=== PATIENT | male | born 1955 | race Caucasian/White ===

== ENCOUNTER 2018-08-02 11:53 | Emergency (ER) | payer BC ==
[2018-08-02] MEDS ORDERED: Sodium Chloride 0.9% 10 ML Syringe FLUSH PRN (12:26)
--- NOTE | 2018-08-02 12:27 | EDM.PDOC ---
<Hazel Doss - Last Filed: 08/02/18 12:34> ED HPI GENERAL MEDICAL PROBLEM - General Chief Complaint: Abdominal Pain Stated Complaint: ABDOMINAL PAIN Time Seen by Provider: 08/02/18 12:00 Source of Information: Reports: Patient History Limitations: Reports: No Limitations - History of Present Illness INITIAL COMMENTS - FREE TEXT/NARRATIVE: Luis is a 63-eyar-old man with medical history significant for sleep apnea, HTN and umbilical hernia who complains of 10/10 periumbilical pain with acute onset 30 minutes prior to arrival. He reports he was at work when he took a break to get something to eat. He was walking to the fridge when the pain occurred. Symptoms have never occurred previously. He has had an umbilical hernia for "a long time," but he has never had any complications. Pain is sharp and is located at/around the umbilicus. It is better with rest and exacerbated by sitting up (use of abdominal muscles) and use of his belt. The pain is constant and does not wax/wane. Luis denies fever, nausea/vomiting , diarrhea/constipation, hematemesis or hematochezia, previous abdominal surgeries, and gastrointestinal problems. He has never had a colonoscopy. He last a normal bowel movement at 11am today. Onset: Today, Sudden Quality: Reports: Sharp Severity: Severe - Related Data Allergies Allergy/AdvReac Type Severity Reaction Status Date / Time No Known Allergies Allergy Verified 08/02/18 12:05 ED ROS GENERAL - Review of Systems Constitutional: Reports: Chills. Denies: Fever, Diaphoresis, Decreased Appetite Respiratory: Denies: Shortness of Breath Cardiovascular: Denies: Chest Pain, Palpitations GI/Abdominal: Reports: Abdominal Pain (periumbilical, as per HPI). Denies: Black Stool, Bloody Stool, Diarrhea, Hematemesis, Hematochezia, Melena, Nausea, Vomiting : Reports: No Symptoms Musculoskeletal: Reports: No Symptoms Skin: Reports: No Symptoms Neurological: Reports: No Symptoms ED EXAM, GI/ABD - Physical Exam Text/Narrative:: Pt appears uncomfortable, with flushed, clammy skin Exam Limited By: No Limitations General Appearance: Alert, Moderate Distress Respiratory/Chest: Lungs Clear, Normal Breath Sounds Cardiovascular: Normal Peripheral Pulses, Regular Rate, Rhythm, No Murmur GI/Abdominal Exam: Normal Bowel Sounds (bowel sounds normal in all 4 quadrants) , Rigid (umbilicus is rigid; remainder of abdomen is soft), Tender ( periumbilical tenderness to light palpation. Remainder of abdomen is non-tender to deep palpation), Other (obese abdomen with umbilical hernia. No diastasis recti.) Neurological: Alert, Oriented Psychiatric: Anxious Skin Exam: Warm (skin is warm and clammy) Course - Vital Signs Last Recorded V/S: Last Vital Signs Temp 97.6 F 08/02/18 12:02 Pulse 77 08/02/18 12:02 Resp 18 08/02/18 12:02 BP 140/86 08/02/18 12:02 Pulse Ox 98 08/02/18 12:02 - Orders/Labs/Meds Labs: Laboratory Tests 08/02/18 08/02/18 Range/Units 12:30 12:30 WBC 7.28 (4.23-9.07) K/mm3 RBC 5.51 (4.63-6.08) M/mm3 Hgb 16.7 (13.7-17.5) gm/L Hct 47.5 (40.1-51.0) % MCV 86.2 (79.0-92.2) fl MCH 30.3 (25.7-32.2) pg MCHC 35.2 (32.2-35.5) g/dl RDW Std Deviation 41.9 (35.1-43.9) fL Plt Count 229 (163-337) K/mm3 MPV 9.5 (9.4-12.3) fl Neutrophils % (Manual) 52 (40-60) % Band Neutrophils % 0 (0-10) % Lymphocytes % (Manual) 33 (20-40) % Atypical Lymphs % 0 % Monocytes % (Manual) 7 (2-10) % Eosinophils % (Manual) 6 (0.8-7.0) % Basophils % (Manual) 2 H (0.2-1.2) Platelet Estimate Adequate Plt Morphology Comment Normal RBC Morph Comment Normal Sodium 138 (136-145) mEq/L Potassium 3.7 (3.5-5.1) mEq/L Chloride 102 (98-107) mEq/L Carbon Dioxide 26 (21-32) mEq/L Anion Gap 13.7 (5-15) BUN 15 (7-18) mg/dL Creatinine 1.2 (0.7-1.3) mg/dL Est Cr Clr Drug Dosing 56.86 mL/min Estimated GFR (MDRD) > 60 (>60) mL/min BUN/Creatinine Ratio 12.5 L (14-18) Glucose 104 (80-115) mg/dL Calcium 8.5 (8.5-10.1) mg/dL Total Bilirubin 0.7 (0.2-1.0) mg/dL AST 22 (15-37) U/L ALT 21 (16-63) U/L Alkaline Phosphatase 65 (46-116) U/L C-Reactive Protein < 0.2 (<1.0) mg/dL Total Protein 7.1 (6.4-8.2) g/dl Albumin 3.9 (3.4-5.0) g/dl Globulin 3.2 gm/dL Albumin/Globulin Ratio 1.2 (1-2) Meds: Medications Discontinued Medications Generic Name Dose Route Start Last Admin Trade Name Freq PRN Reason Stop Dose Admin Hydromorphone HCl 1 mg 08/02/18 12:33 08/02/18 12:49 Dilaudid IVPUSH 08/02/18 12:34 1 mg ONETIME ONE Administration Hydromorphone HCl 0.5 mg 08/02/18 12:56 08/02/18 13:01 Dilaudid IVPUSH 08/02/18 12:57 0.5 mg ONETIME ONE Administration Hydromorphone HCl 0.5 mg 08/02/18 13:11 08/02/18 13:27 Dilaudid IVPUSH 08/02/18 13:12 0.5 mg ONETIME ONE Administration Sodium Chloride 1,000 mls @ 150 mls/hr 08/02/18 12:45 08/02/18 12:50 Normal Saline IV 150 mls/hr ASDIRECTED ROSA Administration Midazolam HCl 2 mg 08/02/18 12:34 08/02/18 12:47 Versed 1 Mg/Ml IVPUSH 08/02/18 12:35 2 mg ONETIME ONE Administration Midazolam HCl 2 mg 08/02/18 13:11 08/02/18 13:28 Versed 1 Mg/Ml IVPUSH 08/02/18 13:12 2 mg ONETIME ONE Administration Sodium Chloride 10 ml 08/02/18 12:26 08/02/18 12:41 Saline Flush FLUSH 10 ml ASDIRECTED PRN Administration Keep Vein Open Departure - Departure Disposition: Home, Self-Care 01 Clinical Impression: Periumbilical hernia - Discharge Information Instructions: Umbilical Hernia, Adult Referrals: Sera Vasquez PA-C [Primary Care Provider] - Forms: ED Department Discharge, ED Return to Work/School Form Additional Instructions: wear vic wrap with gauze pressure when up, walking or working. No lifting more than 10 lbs recomended until you get this repaired. Daily stool softner recomended. See Dr Mirza, [facility] next Aug.08 3:45 PM. Return to ED as needed. <Narendra Salazar - Last Filed: 08/05/18 12:13> ED HPI GENERAL MEDICAL PROBLEM Abdomen Pain Score (Numeric/FACES): 10 Past Medical History Cardiovascular History: Reports: Hypertension Social & Family History - Tobacco Use Smoking Status *Q: Never Smoker - Caffeine Use Caffeine Use: Reports: Soda - Recreational Drug Use Recreational Drug Use: No ED ROS GENERAL - Review of Systems Review Of Systems: See Below HEENT: Reports: No Symptoms Musculoskeletal: Denies: Back Pain ED EXAM, GI/ABD - Physical Exam Exam: See Below Throat/Mouth: Normal Inspection Head: Atraumatic Neck: Supple Back Exam: No: CVA Tenderness (L), CVA Tenderness (R) Extremities: Normal Inspection, No Pedal Edema Neurological: No Motor/Sensory Deficits Course - Orders/Labs/Meds Labs: Laboratory Tests 08/02/18 08/02/18 Range/Units 12:30 12:30 WBC 7.28 (4.23-9.07) K/mm3 RBC 5.51 (4.63-6.08) M/mm3 Hgb 16.7 (13.7-17.5) gm/L Hct 47.5 (40.1-51.0) % MCV 86.2 (79.0-92.2) fl MCH 30.3 (25.7-32.2) pg MCHC 35.2 (32.2-35.5) g/dl RDW Std Deviation 41.9 (35.1-43.9) fL Plt Count 229 (163-337) K/mm3 MPV 9.5 (9.4-12.3) fl Neutrophils % (Manual) 52 (40-60) % Band Neutrophils % 0 (0-10) % Lymphocytes % (Manual) 33 (20-40) % Atypical Lymphs % 0 % Monocytes % (Manual) 7 (2-10) % Eosinophils % (Manual) 6 (0.8-7.0) % Basophils % (Manual) 2 H (0.2-1.2) Platelet Estimate Adequate Plt Morphology Comment Normal RBC Morph Comment Normal Sodium 138 (136-145) mEq/L Potassium 3.7 (3.5-5.1) mEq/L Chloride 102 (98-107) mEq/L Carbon Dioxide 26 (21-32) mEq/L Anion Gap 13.7 (5-15) BUN 15 (7-18) mg/dL Creatinine 1.2 (0.7-1.3) mg/dL Est Cr Clr Drug Dosing 56.86 mL/min Estimated GFR (MDRD) > 60 (>60) mL/min BUN/Creatinine Ratio 12.5 L (14-18) Glucose 104 (80-115) mg/dL Calcium 8.5 (8.5-10.1) mg/dL Total Bilirubin 0.7 (0.2-1.0) mg/dL AST 22 (15-37) U/L ALT 21 (16-63) U/L Alkaline Phosphatase 65 (46-116) U/L C-Reactive Protein < 0.2 (<1.0) mg/dL Total Protein 7.1 (6.4-8.2) g/dl Albumin 3.9 (3.4-5.0) g/dl Globulin 3.2 gm/dL Albumin/Globulin Ratio 1.2 (1-2) Meds: Medications Discontinued Medications Generic Name Dose Route Start Last Admin Trade Name Freq PRN Reason Stop Dose Admin Hydromorphone HCl 1 mg 08/02/18 12:33 08/02/18 12:49 Dilaudid IVPUSH 08/02/18 12:34 1 mg ONETIME ONE Administration Hydromorphone HCl 0.5 mg 08/02/18 12:56 08/02/18 13:01 Dilaudid IVPUSH 08/02/18 12:57 0.5 mg ONETIME ONE Administration Hydromorphone HCl 0.5 mg 08/02/18 13:11 08/02/18 13:27 Dilaudid IVPUSH 08/02/18 13:12 0.5 mg ONETIME ONE Administration Sodium Chloride 1,000 mls @ 150 mls/hr 08/02/18 12:45 08/02/18 12:50 Normal Saline IV 150 mls/hr ASDIRECTED ROSA Administration Midazolam HCl 2 mg 08/02/18 12:34 08/02/18 12:47 Versed 1 Mg/Ml IVPUSH 08/02/18 12:35 2 mg ONETIME ONE Administration Midazolam HCl 2 mg 08/02/18 13:11 08/02/18 13:28 Versed 1 Mg/Ml IVPUSH 08/02/18 13:12 2 mg ONETIME ONE Administration Sodium Chloride 10 ml 08/02/18 12:26 08/02/18 12:41 Saline Flush FLUSH 10 ml ASDIRECTED PRN Administration Keep Vein Open - Re-Assessments/Exams Free Text/Narrative Re-Assessment/Exam: 08/05/18 12:11 Initial hx and exam was done by Hazel Jack, 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 I agree with her hx and exam as documneted. I also interviewed and examined patient. Patient was given IV dilaudid, multiple doses of IV versed for pain and for relaxation. Than with a few minutes of gentle pressure I was able to reduce the hernina Departure - Departure Time of Disposition: 15:27 Condition: Fair
[2018-08-02] MEDS ORDERED: HYDROmorphone 0.5 MG/0.5 ML SYRINGE IVPUSH ONE ×3 (12:33→13:11)
[2018-08-02] MEDS ORDERED: Midazolam 1 MG/ML 2 ML SDV IVPUSH ONE ×2 (12:34→13:11)
[2018-08-02] MEDS ORDERED: Sodium Chloride 0.9% 1,000 ML IV SCH (12:45)
== END 2018-08-02 15:54 | disposition home or self-care (01) ==
LOC: JD.ED 11:53
DX: K42.9 Umbilical hernia without obstruction or gangrene (principal); I10 Essential (primary) hypertension
CPT/HCPCS: 36415; 80053; 85007; 85027; 86140; 96361; 96374; 96375; 96376; 99284; J1170; J2250; J7040; J7050

== ENCOUNTER 2019-12-28 19:40 | Emergency (ER) | payer BC ==
--- NOTE | 2019-12-28 20:38 | EDM.PDOC ---
ED HPI GENERAL MEDICAL PROBLEM - General Chief Complaint: Neurological Problem Stated Complaint: FELL ON HEAD WHILE ICE FISHING BLACKED OUT Time Seen by Provider: 12/28/19 21:48 Source of Information: Reports: Patient, Family History Limitations: Reports: No Limitations (O's) - History of Present Illness INITIAL COMMENTS - FREE TEXT/NARRATIVE: 64-year-old male presents to the ED after slipping and falling on the ice while out ice fishing at about 1730 hrs. today. Apparently the fall was witnessed by a father and son who are fishing nearby. It is suggested that he probably lost consciousness for a minute or so. He states he did not the wind out of him. He laid on the ice for period of time to collect his thoughts and when he got up he seen that there was a little bit of blood on the ice. At present he is complaining of some diffuse cervical neck pain and has had previous cervical spine surgery with fusion. He does have a headache for which she has taken 2 Advil's. He has no nausea or vomiting. Onset: Today Onset Date: 12/28/19 Onset Time: 17:30 Duration: Hour(s):, Constant Location: Reports: Head (Has a goose egg on the back of his head with some mild bleeding.), Neck (Fuhs cervical neck pain) Quality: Reports: Ache Severity: Moderate (4 out of 10) Improves with: Reports: Medication (Advil x2 seems to have helped with the headache) Worsens with: Reports: Movement (Some pain with movement of his neck) Context: Reports: Trauma (10 fell on the ice while out ice fishing at [facility] here in [place].). Denies: Activity, Exercise, Lifting, Sick Contact Associated Symptoms: Reports: Headaches. 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 (He took 2 tablets of Motrin about 1830 hrs.) Headache Pain Score (Numeric/FACES): 4 - Related Data Allergies Allergy/AdvReac Type Severity Reaction Status Date / Time No Known Allergies Allergy Verified 12/28/19 20:10 Home Meds: Home Meds Aspirin [Low Dose Aspirin EC] 81 mg PO DAILY 08/12/18 [History] Enalapril Maleate 10 mg PO DAILY 08/12/18 [History] Furosemide 20 mg PO DAILY 08/12/18 [History] Potassium Chloride 20 meq PO DAILY 08/12/18 [History] Past Medical History HEENT History: Reports: Hard of Hearing, Impaired Vision, Other (See Below) Other HEENT History: has reading glasses, dentures Cardiovascular History: Reports: Hypertension Respiratory History: Reports: Sleep Apnea (cpap at night) Gastrointestinal History: Reports: Other (See Below) Other Gastrointestinal History: umbilical hernia Genitourinary History: Reports: BPH 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: Reports: None Musculoskeletal History: Reports: None Psychiatric History: Reports: None Endocrine/Metabolic History: Reports: None Hematologic History: Reports: None Immunologic History: Reports: None Oncologic (Cancer) History: Reports: None Dermatologic History: Reports: None - Past Surgical History Head Surgeries/Procedures: Reports: None HEENT Surgical History: Reports: Oral Surgery Cardiovascular Surgical History: Reports: None Respiratory Surgical History: Reports: None GI Surgical History: Reports: None Female Surgical History: Reports: None Male Surgical History: Reports: None Endocrine Surgical History: Reports: None Neurological Surgical History: Reports: Other (See Below) Other Neurological Surgeries/Procedures: neck surgery Musculoskeletal Surgical History: Reports: Other (See Below) Other Musculoskeletal Surgeries/Procedures:: carpal tunnel release bilaterally and finger Oncologic Surgical History: Reports: None Dermatological Surgical History: Reports: None Social & Family History - Caffeine Use Caffeine Use: Reports: Coffee, Soda - Living Situation & Occupation Living situation: Reports: Occupation: Employed [facility] [employer] GENERAL - Review of Systems Review Of Systems: See Below Constitutional: Denies: Fever, Chills, Malaise, Weakness, Fatigue, Decreased Appetite, Weight Loss HEENT: Reports: Glasses Respiratory: Reports: No Symptoms Cardiovascular: Reports: Blood Pressure Problem. Denies: Chest Pain Endocrine: Reports: No Symptoms GI/Abdominal: Reports: No Symptoms : Reports: Frequency, Other (Nocturia x2 or 3) Musculoskeletal: Reports: Neck Pain (Pain for which he has had previous fusion carried out at C5-C6 level.), Back Pain (Positive low back pain and knee pain) Skin: Reports: No Symptoms Neurological: Reports: Headache. Denies: Confusion, Dizziness, Numbness, Pre- Existing Deficit, Seizure, Syncope, Tingling (Mild to moderate headache.), Tremors, Trouble Speaking, Difficulty Walking, Weakness Psychiatric: Reports: No Symptoms Hematologic/Lymphatic: Reports: No Symptoms Immunologic: Reports: No Symptoms ED EXAM, NEURO - Physical Exam Exam: See Below Exam Limited By: No Limitations General Appearance: Alert, WD/WN, No Apparent Distress, Other (Vital signs show temperature 37.6 but he does not feel warm to palpation. Heart rate was 98 in sinus respiratory of 18 with O2 sats of 99% on room air blood pressure mildly elevated at 147/94.) Eye Exam: Bilateral Eye: Normal Inspection Ears: Normal TMs Nose: Normal Inspection Throat/Mouth: Normal Inspection, Normal Lips, Normal Oropharynx, Other Head Exam: Other (No dental or tongue injury she has a 5 cm hematoma right in the middle of his occipital scalp that is tender to touch. There is a superficial abrasion measuring 6 mm to the left side of this hematoma. It is not actively bleeding at this time) Neck: Full Range of Motion (Hepatus and some pain at full range of motion particularly lateral rotation and lateral flexion.), Tender Lateral, Other ( Midline cervical scar from previous fusion. Also scar anterior neck.). No: Lymphadenopathy (L) (Laterally mild.), Lymphadenopathy (R) Respiratory/Chest: No Respiratory Distress, Lungs Clear, Normal Breath Sounds, No Accessory Muscle Use, Chest Non-Tender Cardiovascular: Normal Peripheral Pulses (From compression of his ribs did not cause any pain.), Regular Rate, Rhythm, No Edema, No Gallop, No Murmur, No Rub GI/Abdominal: Normal Bowel Sounds, Soft, Non-Tender, No Organomegaly, No Abnormal Bruit, No Mass, Pelvis Stable, Other Neurological: Alert, Normal Mood/Affect, Normal Dorsiflexion, CN II-XII Intact, Normal Plantar Flexion, Normal Gait, No Motor/Sensory Deficits, Oriented x 3 DTR: 1+: Achilles (R), Achilles (L), 2+: Bicep (R), Bicep (L), Patella (R), Patella (L) Back Exam: Normal Inspection, Full Range of Motion, Vertebral Tenderness, Other. No: CVA Tenderness (L), CVA Tenderness (R) Extremities: Normal Inspection (Fusions or abrasions to the upper or lower back) , Normal Range of Motion, Non-Tender, Other Psychiatric: Normal Affect, Normal Mood (Degrees to his elbows wrists or forearms.) Skin Exam: Warm, Dry, Intact, Normal Color, No Rash Course - Vital Signs Last Recorded V/S: Last Vital Signs Temp 37.6 C 12/28/19 20:06 Pulse 98 12/28/19 20:06 Resp 18 12/28/19 20:06 BP 147/94 H 12/28/19 20:06 Pulse Ox 99 12/28/19 20:06 - Orders/Labs/Meds Orders: Active Orders 24 hr Category Date Time Status Cervical Spine wo Cont [CT] Stat Exams 12/28/19 20:37 Taken Head wo Cont [CT] Stat Exams 12/28/19 20:35 Taken - Radiology Interpretation Free Text/Narrative:: 64-year-old male presents to the ED for slipping and falling on the ice while ice fishing at about 1730 hrs. today. A son and father who were nearby fishing appreciated him falling or witnessed it and they indicate that he was unresponsive for about a minute or so. Patient states that he did not the wind out of him and it took a while for him to get his bearings. He laid flat on the ice for a period of time. When he got up he noted a spot of blood on the eyes. After a while he [place] up his things and went on home. He continued to have a worsening headache and therefore presents to the ED for evaluation. Patient has some diffuse cervical neck pain as well. 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 Take 2 tablets for relief of headache since he fell. He has not appreciated any further bleeding from his scalp. And CT head and cervical spine to be done. He has no other obvious injuries. - Re-Assessments/Exams Free Text/Narrative Re-Assessment/Exam: 12/28/19 22:00: CT of the head reveals small bilateral basal ganglia calcifications. No acute intracranial hemorrhage is appreciated. The ibarra- white matter differentiation is normal. There is no ventriculomegaly no acute fractures identified. Mild right maxillary sinus mucosal thickening. No mastoid effusion. CT of the cervical spine reveals beam hardening artifact limits evaluation at the C5-T3 level. There is C4-C5 anterior discectomy and instrumented fusion. Mild smooth reversal of the normal cervical lordosis. No acute fractures are identified. There is moderate to severe left C6-on C7 neuroforaminal stenosis. And advised of the findings. He is likely to have a much more stiffer and sore neck tomorrow. He may well have suffered a mild concussion but he prefers to try and go to work tomorrow. He can continue Motrin 60 mg every 6 hours as needed for headache relief. He will return if he develops nausea vomiting or worsening headache. Departure - Departure Time of Disposition: 22:02 Disposition: Home, Self-Care 01 Condition: Fair Clinical Impression: Closed head injury with concussion Qualifiers: Encounter type: initial encounter Loss of consciousness presence/duration: with LOC of 30 min or less Qualified Code(s): S06.0X1A - Concussion with loss of consciousness of 30 minutes or less, initial encounter - Discharge Information *PRESCRIPTION DRUG MONITORING PROGRAM REVIEWED*: Not Applicable *COPY OF PRESCRIPTION DRUG MONITORING REPORT IN PATIENT TERRIE: Not Applicable Instructions: Concussion, Adult, Head Injury, Adult, [id number] Referrals: Sera Vasquez PA-C [Primary Care Provider] - Forms: ED Department Discharge Additional Instructions: Evaluation in the emergency room today in regards to slip and fall on the ice while out ice fishing earlier this evening. History suggest transient loss of consciousness due to the fall and therefore I suspect a very mild concussion. Concussion is a bruised brain and usually means taking life fairly easy for the next 3 or 4 days in terms of not doing any activities that get your blood pressure elevated etc. CT of the head reveals no skull fractures and no intracranial bleeding or mass-effect. CT of your cervical spine reveals no fractures and that your hardware placed in the past is with him its appropriate position. Expect her neck to become much more stiff and sore over the next couple of days. It is okay to take Motrin 600 mg every 6 hours as needed for headache and/or neck pain relief. Follow-up with personal care physician if any further problems occur. Sepsis Event Note - Evaluation Sepsis Screening Result: No Definite Risk - Focused Exam Vital Signs: Vital Signs Temp Pulse Resp BP Pulse Ox 12/28/19 20:06 37.6 C 98 18 147/94 H 99 Date Exam was Performed: 12/29/19 Time Exam was Performed: 00:47 - My Orders Last 24 Hours: My Active Orders 12/28/19 20:35 Head wo Cont [CT] Stat 12/28/19 20:37 Cervical Spine wo Cont [CT] Stat - Assessment/Plan Last 24 Hours: My Active Orders 12/28/19 20:35 Head wo Cont [CT] Stat 12/28/19 20:37 Cervical Spine wo Cont [CT] Stat
--- NOTE | 2019-12-29 06:55 | CT ---
Head CT Technique: Multiple axial sections through the brain were obtained. Intravenous contrast was not utilized. Comparison: No prior intracranial imaging is available. Findings: Ventricles along with basal cisterns and sulci over the convexities appear within normal limits for the patient's age. Slight basal ganglia calcifications seen which is not expected in a patient this age. No abnormal parenchymal densities are seen. No evidence of intracranial hemorrhage. No midline shift or mass-effect is seen. Bone window settings were reviewed. Visualized mastoid sinuses show nothing acute. Minimal fluid is seen within the right maxillary sinus. No acute calvarial abnormality is appreciated. Impression: 1. Small air-fluid level within the right maxillary sinus most likely representing retained secretions. 2. No acute intracranial abnormality is appreciated. Diagnostic code #2 This report was dictated in [place] Standard Time I agree with preliminary report from [facility], finalized on 12/28/19, 10:35 PM Central Time
--- NOTE | 2019-12-29 06:55 | CT ---
CT cervical spine Technique: Multiple axial sections were obtained from above C1 inferiorly to the mid T3 level. Reconstructed sagittal and coronal images were reviewed. Comparison: No prior cervical spine imaging is available. Findings: Mild degenerative change is noted between the dens and anterior arch of C1. Prior surgery with intravertebral fusion noted at C5-C6. Anterior plate and screws are noted. Moderate disc space narrowing is noted at C3-C4 and C4-C5. Severe disc space narrowing is noted at C6-C7. Moderate disc space narrowing is noted at C7-T1, T1-T2 and T2-T3. Mild scattered degenerative apophyseal change is seen. Moderate left-sided neural foraminal stenosis noted at C6-C7. Other neural foramina are felt to be fairly well patent. No fracture is seen. No acute subluxation is noted. Impression: 1. Degenerative change. Prior surgery. 2. No acute abnormality is identified on CT study of the cervical spine. Diagnostic code #3 This report was dictated in [place] Standard Time I agree with preliminary report from [facility], finalized on 12/28/19, 10:48 PM Central Time
== END 2019-12-28 22:34 | disposition home or self-care (01) ==
LOC: JD.ED 19:40
DX: S06.0X1A Concussion with loss of consciousness of 30 minutes or less, initial encounter (principal); I10 Essential (primary) hypertension; Z79.82 Long term (current) use of aspirin; Z79.899 Other long term (current) drug therapy; W00.0XXA Fall on same level due to ice and snow, initial encounter
CPT/HCPCS: 70450; 70450-26; 72125; 72125-26; 99283; 99284-25

== ENCOUNTER 2020-09-21 10:05 | Day surgery (SDC) | payer BC ==
[~2020-09-21 10:05] MED LIST: Cefuroxime 10 MG/ML SYRINGE EYERT SCH; Lidocaine 1% PF 2 ML SDV INJECT SCH; Pilocarpine 4% Ophth Soln 15 ML Bot EYERT SCH
[2020-09-21] MEDS: Polymyxin B/Trimethoprim 10 ML Bottle EYERT SCH ×3 (10:15→11:21)
[2020-09-21] MEDS: Brimonidine 0.2% Ophth Soln 5 ML Bottle EYERT SCH ×3 (10:20→11:21)
[2020-09-21] MEDS: Phenylephrine 2.5% Ophth Soln 2 ML Bot EYERT SCH ×5 (10:25→11:01)
[2020-09-21] MEDS: Tropicamide 1% Ophth Soln 15 ML Bottle EYERT SCH ×4 (10:33→10:52)
--- NOTE | 2020-09-21 10:36 | PCM.PREANE ---
Preanesthetic Assessment - Procedure Proposed Procedure: Cataract Extraction with IOL right eye - Anesthesia/Transfusion/Family Hx Anesthesia History: Prior Anesthesia Without Reaction Family History of Anesthesia Reaction: No Transfusion History: No Prior Transfusion(s) - Review of Systems General: No Symptoms Pulmonary: Other (Sleep Apnea with CPAP) Cardiovascular: No Symptoms (HTN) Gastrointestinal: No Symptoms Neurological: No Symptoms Other: Reports: None (Obesity, [place]), Sinus Problem (Drainage, Dry throat) - Physical Assessment NPO Status Date: 09/20/20 NPO Status Time: 22:00 Weight: 107.048 kg ASA Class: 3 Mental Status: Alert & Oriented x3 Airway Class: Mallampati = 1 Dentition: Reports: Normal Dentition Thyro-Mental Finger Breadths: 3 Mouth Opening Finger Breadths: 3 ROM/Head Extension: Full Lungs: Clear to Auscultation, Normal Respiratory Effort Cardiovascular: Regular Rate, Regular Rhythm - Allergies Allergies/Adverse Reactions: Allergies Allergy/AdvReac Type Severity Reaction Status Date / Time No Known Allergies Allergy Verified 09/20/20 16:04 - Acknowledgements Anesthesia Type Planned: MAC Pt an Appropriate Candidate for the Planned Anesthesia: Yes Alternatives and Risks of Anesthesia Discussed w Pt/Guardian: Yes Pt/Guardian Understands and Agrees with Anesthesia Plan: Yes PreAnesthesia Questionnaire HEENT History: Reports: Hard of Hearing, Impaired Vision, Other (See Below) Other HEENT History: has reading glasses, dentures Cardiovascular History: Reports: Hypertension Respiratory History: Reports: Sleep Apnea (cpap at night) Gastrointestinal History: Reports: Other (See Below) Other Gastrointestinal History: umbilical hernia Genitourinary History: Reports: BPH 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 Musculoskeletal History: Reports: None Psychiatric History: Reports: None Endocrine/Metabolic History: Reports: None Hematologic History: Reports: None Immunologic History: Reports: None Oncologic (Cancer) History: Reports: None Dermatologic History: Reports: None - Past Surgical History Head Surgeries/Procedures: Reports: None HEENT Surgical History: Reports: Oral Surgery Cardiovascular Surgical History: Reports: None Respiratory Surgical History: Reports: None GI Surgical History: Reports: None Female Surgical History: Reports: None Male Surgical History: Reports: None Endocrine Surgical History: Reports: None Neurological Surgical History: Reports: Other (See Below) Other Neurological Surgeries/Procedures: neck surgery Musculoskeletal Surgical History: Reports: Other (See Below) Other Musculoskeletal Surgeries/Procedures:: carpal tunnel release bilaterally and finger Oncologic Surgical History: Reports: None Dermatological Surgical History: Reports: None - HOME MEDS Home Medications: Home Meds Aspirin [Low Dose Aspirin EC] 81 mg PO DAILY 08/12/18 [History] Enalapril Maleate 10 mg PO DAILY 08/12/18 [History] Furosemide 20 mg PO DAILY 08/12/18 [History] Fluticasone Propionate [Flonase] 1 dose NASBOTH BID PRN 09/20/20 [History] Loratadine/Pseudoephedrine [Alavert D-12 Allergy-Sinus] 1 tab PO BID PRN 09/20/20 [History] Montelukast [Singulair] 10 mg PO DAILY 09/20/20 [History] Potassium Chloride 10 meq PO DAILY 09/20/20 [History] traZODone HCl [Trazodone HCl] 100 mg PO BEDTIME 09/20/20 [History] - CURRENT (IN HOUSE) MEDS Current Meds: Current Medications Brimonidine Tartrate (Alphagan 0.2% Ophth Soln) 0 ml EYERT ASDIRECTED ROSA Stop: 09/21/20 18:00 Last Admin: 09/21/20 10:20 Dose: 1 drop Documented by: Cefuroxime Sodium (Zinacef) 0 mg EYERT ASDIRECTED ROSA Stop: 09/21/20 18:00 Lidocaine HCl (Xylocaine-Mpf 1%) 0 ml INJECT ASDIRECTED ROSA Stop: 09/21/20 18:00 Phenylephrine HCl (Chepe-Synephrine 2.5% Ophth Soln) 0 ml EYERT ASDIRECTED ROSA Stop: 09/21/20 18:00 Last Admin: 09/21/20 10:25 Dose: 1 drop Documented by: Pilocarpine HCl (Pilocar 4% Ophth Soln) 0 ml EYERT ASDIRECTED ROSA Stop: 09/21/20 18:00 Polymyxin/Trimethoprim Sulfate (Polytrim Ophth Soln) 0 ml EYERT ASDIRECTED ROSA Stop: 09/21/20 18:00 Last Admin: 09/21/20 10:15 Dose: 1 drop Documented by: Tetracaine HCl (Tetracaine 0.5% Steri-Unit Zully) 0 ml EYEBOTH ASDIRECTED ROSA Stop: 09/21/20 18:00 Tropicamide (Mydriacyl 1% Ophth Soln) 0 ml EYERT ASDIRECTED ROSA Stop: 09/21/20 18:00 Last Admin: 09/21/20 10:33 Dose: 1 drop Documented by:
[2020-09-21] MEDS: Tetracaine HCl/PF 0.5% 4 ML Bottle EYEBOTH SCH ×4 (10:55→11:09)
--- NOTE | 2020-09-21 11:23 | PCM48HPAN ---
Post Anesthesia Note - EVALUATION WITHIN 48HRS OF ANESTHETIC Vital Signs in Normal Range: Yes Patient Participated in Evaluation: Yes Respiratory Function Stable: Yes Airway Patent: Yes Cardiovascular Function Stable: Yes Hydration Status Stable: Yes Pain Control Satisfactory: Yes Nausea and Vomiting Control Satisfactory: Yes Mental Status Recovered: Yes Vital Signs: Last Vital Signs Temp 37.2 C 09/21/20 10:10 Pulse 72 09/21/20 10:10 Resp 16 09/21/20 10:10 BP 132/86 09/21/20 10:10 Pulse Ox 96 09/21/20 10:10
== END 2020-09-21 11:31 | disposition home or self-care (01) ==
LOC: JD.SDS 10:05
PROVIDERS: ATTEND Ophthalmology
DX: H25.813 Combined forms of age-related cataract, bilateral (principal); H16.103 Unspecified superficial keratitis, bilateral; H16.223 Keratoconjunctivitis sicca, not specified as Sjogren's, bilateral; H02.834 Dermatochalasis of left upper eyelid; H02.831 Dermatochalasis of right upper eyelid; H57.813 Brow ptosis, bilateral; G47.30 Sleep apnea, unspecified; I10 Essential (primary) hypertension; Z98.890 Other specified postprocedural states; Z79.899 Other long term (current) drug therapy; Z79.82 Long term (current) use of aspirin
CPT/HCPCS: 66984; J0697; J2001; V2632

== ENCOUNTER 2020-10-12 08:04 | Day surgery (SDC) | payer BC ==
[~2020-10-12 08:04] MED LIST changes: +Cefuroxime 10 MG/ML SYRINGE EYELF SCH; -Cefuroxime 10 MG/ML SYRINGE EYERT SCH; +Pilocarpine 4% Ophth Soln 15 ML Bot EYELF SCH; -Pilocarpine 4% Ophth Soln 15 ML Bot EYERT SCH
[2020-10-12] MEDS: Polymyxin B/Trimethoprim 10 ML Bottle EYELF SCH ×3 (08:12→09:48)
--- NOTE | 2020-10-12 08:14 | PCM.PREANE ---
Preanesthetic Assessment - Anesthesia/Transfusion/Family Hx Anesthesia History: Prior Anesthesia Without Reaction Family History of Anesthesia Reaction: No Transfusion History: No Prior Transfusion(s) - Review of Systems General: Other ([place]) Pulmonary: Other (esther with CPAP) Cardiovascular: Other (HTN) Gastrointestinal: No Symptoms Neurological: No Symptoms Other: Reports: None - Physical Assessment NPO Status Date: 10/11/20 NPO Status Time: 19:00 ASA Class: 3 Mental Status: Alert & Oriented x3 Airway Class: Mallampati = 2 Dentition: Reports: Normal Dentition Thyro-Mental Finger Breadths: 3 Mouth Opening Finger Breadths: 3 ROM/Head Extension: Full Lungs: Clear to Auscultation, Normal Respiratory Effort Cardiovascular: Regular Rate, Regular Rhythm - Allergies Allergies/Adverse Reactions: Allergies Allergy/AdvReac Type Severity Reaction Status Date / Time No Known Allergies Allergy Verified 10/11/20 12:40 - Blood Blood Available: No Product(s) Available: None - Anesthesia Plan Pre-Op Medication Ordered: None - Acknowledgements Anesthesia Type Planned: MAC Pt an Appropriate Candidate for the Planned Anesthesia: Yes Alternatives and Risks of Anesthesia Discussed w Pt/Guardian: Yes Pt/Guardian Understands and Agrees with Anesthesia Plan: Yes PreAnesthesia Questionnaire HEENT History: Reports: Hard of Hearing, Impaired Vision, Other (See Below) Other HEENT History: has reading glasses, dentures Cardiovascular History: Reports: Hypertension Respiratory History: Reports: Sleep Apnea (cpap at night) Gastrointestinal History: Reports: Other (See Below) Other Gastrointestinal History: umbilical hernia Genitourinary History: Reports: BPH 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 Musculoskeletal History: Reports: None Psychiatric History: Reports: None Endocrine/Metabolic History: Reports: None Hematologic History: Reports: None Immunologic History: Reports: None Oncologic (Cancer) History: Reports: None Dermatologic History: Reports: None - Past Surgical History Head Surgeries/Procedures: Reports: None HEENT Surgical History: Reports: Oral Surgery Cardiovascular Surgical History: Reports: None Respiratory Surgical History: Reports: None GI Surgical History: Reports: None Female Surgical History: Reports: None Male Surgical History: Reports: None Endocrine Surgical History: Reports: None Neurological Surgical History: Reports: Other (See Below) Other Neurological Surgeries/Procedures: neck surgery Musculoskeletal Surgical History: Reports: Other (See Below) Other Musculoskeletal Surgeries/Procedures:: carpal tunnel release bilaterally and finger Oncologic Surgical History: Reports: None Dermatological Surgical History: Reports: None - HOME MEDS Home Medications: Home Meds Aspirin [Low Dose Aspirin EC] 81 mg PO DAILY 08/12/18 [History] Enalapril Maleate 10 mg PO DAILY 08/12/18 [History] Furosemide 20 mg PO DAILY 08/12/18 [History] Fluticasone Propionate [Flonase] 1 dose NASBOTH BID PRN 09/20/20 [History] Loratadine/Pseudoephedrine [Alavert D-12 Allergy-Sinus] 1 tab PO BID PRN 09/20/20 [History] Montelukast [Singulair] 10 mg PO DAILY 09/20/20 [History] Potassium Chloride 10 meq PO DAILY 09/20/20 [History] traZODone HCl [Trazodone HCl] 100 mg PO BEDTIME 09/20/20 [History] - CURRENT (IN HOUSE) MEDS Current Meds: Current Medications Brimonidine Tartrate (Alphagan 0.2% Ophth Soln) 0 ml EYELF ASDIRECTED ROSA Stop: 10/12/20 18:00 Cefuroxime Sodium (Zinacef) 0 mg EYELF ASDIRECTED ROSA Stop: 10/12/20 18:00 Lidocaine HCl (Xylocaine-Mpf 1%) 0 ml INJECT ASDIRECTED ROSA Stop: 10/12/20 18:00 Phenylephrine HCl (Chepe-Synephrine 2.5% Ophth Soln) 0 ml EYELF ASDIRECTED ROSA Stop: 10/12/20 18:00 Pilocarpine HCl (Pilocar 4% Ophth Soln) 0 ml EYELF ASDIRECTED ROSA Stop: 10/12/20 18:00 Polymyxin/Trimethoprim Sulfate (Polytrim Ophth Soln) 0 ml EYELF ASDIRECTED ROSA Stop: 10/12/20 18:00 Tetracaine HCl (Tetracaine 0.5% Steri-Unit Zully) 0 ml EYEBOTH ASDIRECTED ROSA Stop: 10/12/20 18:00 Tropicamide (Mydriacyl 1% Ophth Soln) 0 ml EYELF ASDIRECTED ROSA Stop: 10/12/20 18:00
[2020-10-12] MEDS: Brimonidine 0.2% Ophth Soln 5 ML Bottle EYELF SCH ×3 (08:16→09:48)
[2020-10-12] MEDS: Phenylephrine 2.5% Ophth Soln 2 ML Bot EYELF SCH ×6 (08:20→09:29)
[2020-10-12] MEDS: Tropicamide 1% Ophth Soln 15 ML Bottle EYELF SCH ×4 (08:23→09:10)
[2020-10-12] MEDS: Tetracaine HCl/PF 0.5% 4 ML Bottle EYEBOTH SCH ×4 (09:17→09:36)
--- NOTE | 2020-10-12 09:38 | PCM48HPAN ---
Post Anesthesia Note - EVALUATION WITHIN 48HRS OF ANESTHETIC Vital Signs in Normal Range: Yes Patient Participated in Evaluation: Yes Respiratory Function Stable: Yes Airway Patent: Yes Cardiovascular Function Stable: Yes Hydration Status Stable: Yes Pain Control Satisfactory: Yes Nausea and Vomiting Control Satisfactory: Yes Mental Status Recovered: Yes Vital Signs: Last Vital Signs Temp 36.6 C 10/12/20 08:17 Pulse 74 10/12/20 08:17 Resp 16 10/12/20 08:17 BP 123/89 10/12/20 08:17 Pulse Ox 97 10/12/20 08:17
== END 2020-10-12 09:59 | disposition home or self-care (01) ==
LOC: JD.SDS 08:04
PROVIDERS: ATTEND Ophthalmology
DX: H25.812 Combined forms of age-related cataract, left eye (principal); H02.834 Dermatochalasis of left upper eyelid; H02.831 Dermatochalasis of right upper eyelid; H57.813 Brow ptosis, bilateral; H16.103 Unspecified superficial keratitis, bilateral; H16.223 Keratoconjunctivitis sicca, not specified as Sjogren's, bilateral; Z98.890 Other specified postprocedural states; I10 Essential (primary) hypertension; Z79.890 Hormone replacement therapy; Z96.1 Presence of intraocular lens
CPT/HCPCS: 66984; C1780; J0697; J2001